=== PATIENT | female | born 1965 | race Caucasian/White ===

== ENCOUNTER → 2017-02-03 | Outpatient (CLI) | payer OTHER ==
--- NOTE | ~2017-02-03 | CR7 ---
[facility] A Service of [facility] / [facility] RADIOLOGY TEXT RESULTS PATIENT: LACIE VALENCIA LOCATION: [facility] : 65 UNIT #: [id number] AGE: [address]: Juaquin Briones MD SEX: F ORDER DR: [id number] [place], [place] [address] [id number] O MR#: [id number] Acc #: [id number] NAME: LACIE VALENCIA : 1965 SEX: F STUDY DATE/TIME: 02/03/2017 14:38 UNIT: [facility] ROOM: STUDY DESCRIPTION: CR Abdomen Single AP View Attending Physician: Juaquin Briones M.D. Referring Physician: Juaquin Briones M.D. Ordering Physician: Juaquin Briones M.D. Primary Care Physician: Juaquin Briones M.D. MEDICAL IMAGING REPORT This report is preliminary unless electronic signature is present EXAM KUB HISTORY Worsening abdominal pain over the past month. TECHNIQUE Single view of the abdomen was obtained and compared with 10/06/2015 FINDINGS Calcification is seen projecting over the lower pole of the right kidney, unchanged from the previous examination measuring approximately 1 cm in diameter. No calcifications are seen over the left kidney. No calcifications are seen over the expected course of either ureter or over the bladder. The bowel gas pattern is normal. IMPRESSION Round 1 cm nonobstructing kidney stone lower pole leticia of the right kidney. No change from the previous examination. Dictated by... Michael Valladares M.D. THIS IS AN ELECTRONICALLY VERIFIED REPORT Michael Valladares M.D. at 02/06/2017 7:07 AM CARMINE/saranya TD: 02/05/2017 02:24 JOB #: [id number] MEDICAL IMAGING REPORT [facility] A Service [facility] RADIOLOGY TEXT RESULTS PATIENT: LACIE VALENCIA LOCATION: [facility] : 65 UNIT #: [id number] AGE: [address]: Juaquin Briones MD SEX: F ORDER DR: Page 1 of 1 COPY
== END | disposition home or self-care (01) ==
LOC: CRAD 14:27
DX: R10.84 Generalized abdominal pain (principal); N20.0 Calculus of kidney
CPT/HCPCS: 74000